=== PATIENT | female | born 1965 | race Caucasian/White ===

== ENCOUNTER 2021-11-22 10:46 | Emergency (ER) | payer OTHER, SELFPAY ==
--- NOTE | ~2021-11-22 | XR_ITS ---
XR chest 2V 11/22/2021 11:23 Indication: Productive cough Procedure: 2 view chest Comparison: No prior studies for comparison. Findings: There is left basilar infiltrate. Heart size normal. Right lung clear. No pleural effusion or pneumothorax. No edema. Impression: 1: Left basilar infiltrate which may represent atelectasis or less likely developing pneumonia. Recom mend follow-up x-ray to ensure resolution. Reviewed, dictated and finalized at location B. Impression: 1: Left basilar infiltrate which may represent atelectasis or less likely devel oping pneumonia. Recommend follow-up x-ray to ensure resolution.
[2021-11-22 11:13] VITALS: BP 122/71; PULSE 110; RESP 20; TEMP 36.4; O2SAT 98
--- NOTE | 2021-11-22 11:17 | ED.URI ---
HPI - URI/Sore Throat General Chief Complaint: Upper Respiratory Infection Stated Complaint: Cough,Chills Time Seen by Provider: 11/22/21 11:17 Source: patient Mode of arrival: ambulatory Limitations: no limitations History of Present Illness HPI Narrative: 56-year-old female presents with complaint of fever, chills, body aches, fatigue, headaches, cough, nausea for 2 days. Reports that she did have vomiting last night. Is taking Tylenol and Robitussin to treat her symptoms. Reports body aches are so intense that she cannot get comfortable. Is COVID vaccinated. No chest pain or shortness of breath but does have history of pneumonia. Denies diarrhea. All systems reviewed and negative except as noted above. Related Data Home Medications Medication Instructions Recorded Confirmed estradiol 1 mg tablet 1 mg PO DAILY 10/01/21 leflunomide 20 mg tablet 20 mg PO DAILY 10/01/21 10/01/21 medroxyprogesterone 2.5 mg tablet 2.5 mg PO DAILY 10/01/21 sulfasalazine 500 mg tablet 0.5 g PO DAILY 10/01/21 Allergies Allergy/AdvReac Type Severity Reaction Status Date / Time No Known Allergies Allergy Verified 10/01/21 14:22 Review of Systems Review of Systems: CONSTITUTIONAL: Reports fever, chills, or sweats. EYES: Denies visual changes, redness, or discharge. ENT: Denies rhinorrhea, congestion, sore throat, or otalgia. CARDIOVASCULAR: Denies chest pain, palpitations, or edema. RESPIRATORY: Reports cough. Denies dyspnea. GASTROINTESTINAL: Denies abdominal pain, nausea, vomiting, or diarrhea. GENITOURINARY: Denies dysuria or hematuria. SKIN: Denies rash or itching. MUSCULOSKELETAL: Denies back pain, joint pain. Reports myalgia. NEUROLOGIC: Reports headache. Denies numbness, or weakness. PSYCHIATRIC: Denies anxiety or depression. All other systems reviewed are negative, except as documented in HPI. [facility] Past Medical History Medical History Arthritis, rheumatoid Erosion of suburethral sling Surgical History Surgical History History of tonsillectomy History of tubal ligation Family History Family History (Updated 10/01/21 @ 14:27 by Sola Norwood MA) Grandparent Heart disease Social History Social History (Updated 10/01/21 @ 14:27 by Sola Norwood MA) Smoking status: Never smoker Second hand tobacco smoke exposure: No Alcohol intake: current Alcohol use details: Rarely Substance use: never Substance use type: does not use Gender identity (if verbalized by the patient): Female Sexual Orientation (if Verbalized by the Patient): Straight or Heterosexual Spiritual care concerns: No Agree to blood products: Yes Comments At time of signature, agree with nursing past medical, surgical, social and family history. There is no relevant family history pertinent to the presenting complaint. Exam Narrative: GENERAL: This is a well-nourished, well-developed patient. Patient is ill-appearing but in no distress. HEAD: normocephalic, atraumatic. EYES: PERRL. Sclera clear/white. Vision is grossly intact. EARS: External ears normal, auditory canals clear and without drainage, TMs normal without perforation. Hearing grossly intact. NOSE: External nose normal with no obvious nasal discharge, nares without redness, no rhinorrhea. THROAT: Mucous membranes moist, posterior pharynx clear. NECK: Neck supple, non-tender without lymphadenopathy, masses or thyromegaly. CARDIOVASCULAR: Regular rate and rhythm without murmurs, gallops, or rubs. RESPIRATORY: Decreased upper lobes but otherwise clear. Breath sounds equal bilaterally. No wheezes, rales, or rhonchi. GASTROINTESTINAL: Abdomen soft, non-tender, nondistended. Bowel sounds are active. No hepato-splenomegaly, or palpable masses. No guarding. SKIN: warm, Dry, intact with no suspicious lesions or rash, good texture and turgor. NEURO: awake, al
== END 2021-11-22 11:44 | disposition home or self-care (01) ==
PROVIDERS: Emergency Provider Nurse Practitioner Family; PCP Family Medicine Adolescent Medicine
DX: J10.1 Influenza due to other identified influenza virus with other respiratory manifestations (principal); J18.9 Pneumonia, unspecified organism; Z20.822 Contact with and (suspected) exposure to COVID-19; M06.9 Rheumatoid arthritis, unspecified
CPT/HCPCS: 71046; 87426; 87804; 99213; C9803; G0463

== ENCOUNTER → 2021-12-12 15:03 | Outpatient (CLI) | payer OTHER, SELFPAY ==
--- NOTE | ~2021-12-12 | XR_ITS ---
EXAMINATION: XR chest 2V 12/12/2021 15:24 INDICATION: Shortness of breath PROCEDURE: 2 view chest COMPARISON: 11/22/2021 FINDINGS: The lungs are clear. The cardiomediastinal silhouette is within normal limits. There are no pleural effusions. There is no pneumothorax suspected. IMPRESSION: 1: NO ACUTE CARDIOPULMONARY DISEASE. Reviewed, dictated and finalized at location B.
== END ==
PROVIDERS: PCP Family Medicine Adolescent Medicine; Visit Provider Physician Assistant
DX: R06.02 Shortness of breath (principal)
CPT/HCPCS: 71046

== ENCOUNTER 2022-06-14 18:39 | Observation (INO) | payer OTHER, SELFPAY ==
[2022-06-14] VITALS (10 sets, daily range): BP systolic 142–166; BP diastolic 58–82; PULSE 82–99; RESP 15–18; TEMP 36.6–36.9; O2SAT 97–100
--- NOTE | ~2022-06-14 | XR_ITS ---
EXAMINATION: XR abdomen/kub 1V DATE: 06/15/2022 01:26 INDICATION: Right ureteral stone. TECHNIQUE: A supine view of the abdomen on 2 radiographs was obtained. COMPARISON: CT abdomen and pelvis 06/14/2022 FINDINGS: There are no dilated loops of bowel. There is contrast in the renal collecting system. Ther e is mild right hydronephrosis. IMPRESSION: 1. Mild right hydronephrosis. Reviewed, dictated and finalized at location A. K MIXER
--- NOTE | ~2022-06-14 | XR_ITS ---
EXAMINATION: XR retrograde pyelo w/stent RT DATE: 06/15/2022 9:15 RUBBER STAMP MAKER INDICATION: STONE . TECHNIQUE: 6 fluoroscopic images of the right abdomen and pelvis were obtained during right retrograd e pyelography with stent placement performed by the surgeon. I was not present in the operating room. Fluoroscopy exposure time was 29.5 seconds. DAP [id number] mGym2. COMPARISON: None FINDINGS: Wire and catheter access into the right collecting system followed by stent placement, proximal coil over the renal pelvis, distal coil over the bladder. IMPRESSION: Fluoroscopic documentation of right retrograde pyelography with stent placement. Please refer to the operative note for complete procedural details . Reviewed, dictated and finalized at location K. ER STAMP MAKER IMPRESSION: Fluoroscopic documentation of right retrograde pyelography with stent placement . Please refer to the operative note for complete procedural details .
--- NOTE | ~2022-06-14 | CT_ITS ---
EXAMINATION: CT abdomen pelvis w con DATE: 06/14/2022 21:48 INDICATION: Right upper quadrant abdominal pain. Right flank pain. Nausea and vomiting. TECHNIQUE: Computed tomography (CT) of the abdomen and pelvis was performed with 100 mL Omnipaque 350 intravenous contrast. Automated exposure control and iterative reconstruction technique were employe d. The dose-length product was 1152.65 mGy-cm. COMPARISON: None. FINDINGS: The visualized portions of the lung bases demonstrate mild atelectasis. A calcified right l sandor nodule and calcified right hilar lymph nodes are consistent with old granulomatous disease. No pl eural effusion. The heart size is normal. No pericardial effusion. There is diffuse hepatic steatosis . There is a 15 mm mass in left hepatic lobe. There is a small sliding hiatal hernia. The gallbladder , spleen, pancreas, adrenal glands are normal. There is a delayed right-sided contrast nephrogram. Th ere is asymmetric edema around right kidney. There is mild right hydronephrosis. There is a 4 mm ston e in proximal right ureter. There is a 13 mm cyst in left kidney. There are no dilated loops of bowel . The appendix is not visualized. There are no pathologically enlarged lymph nodes. There is no free intraperitoneal fluid. There are chronic bilateral L5 pars defects. There is 5 mm anterolisthesis of L5 on S1. IMPRESSION: 1. 4 mm stone in proximal right ureter with mild right hydronephrosis. 2. 15 mm liver mass, which may be benign or malignant. Abdomen MRI without and with contrast is recom mended. Reviewed, dictated and finalized at location A. ATION MANAGER IMPRESSION: 1. 4 mm stone in proximal right ureter with mild right hydronephrosis. 2. 15 mm liver mass, which may be benign or malignant. Abdomen MRI without and with contrast is recommended.
[2022-06-14 20:33] LABS: Basophils Absolute Auto 0.1 K/mm3 (0.0-0.1); Basophils Percent Auto 0.7 % (0.2-1.2); Eosinophils Absolute Auto 0.2 K/mm3 (0-0.3); Eosinophils Percent Auto 1.4 % (0-4.4); Hematocrit 41.5 % (37.0-47.0); Hemoglobin 13.6 g/dL (12.0-15.0); Immature Granulocyte Absolute 0.07 K/mm3 (0.00-0.031); Immature Granulocyte Percent A 0.6 % (0-0.5); Lymphocytes Absolute Auto 0.89 K/mm3 (0.9-3.2); Lymphocytes Percent Auto 8.1 % (18.3-44.2); Mean Corpuscular HGB Conc 32.8 g/dl (32-36); Mean Corpuscular Hemoglobin 28.5 pg (26-34); Mean Corpuscular Volume 86.8 fl (80-100); Mean Platelet Volume 11.9 fl (7.4-10.4); Monocytes Absolute Auto 0.9 K/mm3 (0.1-0.6); Monocytes Percent Auto 7.8 % (2.6-8.5); Neutrophils Absolute Auto 8.9 K/mm3 (1.3-6.7); Neutrophils Percent Auto 81.4 % (45.5-73.1); Platelet Count Result 243 k/mm3 (150-375); Red Blood Count 4.78 M/mm3 (4.2-5.4); Red Cell Distribution Width 13.5 % (11.5-14.5)
[2022-06-14 20:44] LABS: Alanine Aminotransferase 34 U/L (6-35); Albumin Level 4.6 g/dL (3.5-5.1); Alkaline Phosphatase 123 U/L (38-126); Anion Gap 8 mmol/L (8-16); Aspartate Amino Transferase 28 U/L (14-36); Bilirubin,Total 0.9 mg/dL (0.2-1.3); Blood Urea Nitrogen 12 mg/dL (7-17); Calcium 8.7 mg/dL (8.4-10.2); Carbon Dioxide 25 mmol/L (22-30); Chloride 106 mmol/L (98-107); Estimated CRCL calculation 90 ml/min; Estimated Glomerular Filt Rate > 60; Glucose 132 mg/dL (65-110); Lipase 34 U/L (23-300); Potassium 4.1 mmol/L (3.4-5.0); Sodium 139 mmol/L (137-145)
[2022-06-14 20:53] LABS: Appearance Urine Clear (Clear); Bilirubin Urine 1+ (Negative); Blood Urine 3+ (Negative); Color Urine Yellow (Yellow); Glucose Urine UA Negative (Negative); Ketones Urine 1+ mg/dL (Negative); Leukocyte Esterase Ur Negative LEU/UL (Negative); Nitrate Urine Negative (Negative); Protein Urine 1+ mg/dL (Negative); Specific Grav Ur >= 1.030 (1.001-1.035); Urobilinogen Urine 0.2 mg/dL (<2.0); pH Urine 5.5 (5.0-9.0)
[2022-06-14] MEDS: MORPHINE SULFATE (*CRX) 4 MG/ML INJ IV PUSH ×2 (20:55→22:20)
[2022-06-14] MEDS: ONDANSETRON INJ 4 MG/2 ML VIAL IV PUSH ×2 (20:55→22:20)
[2022-06-14] MEDS: LACTATED RINGERS 1,000 ML 999 ML IV CONT (20:55)
[2022-06-14 20:59] LABS: Amorphous Sediment Urine Few; Mucus Urine Rare /lpf; RBC Urine >75 /hpf (0-2); Squamous Epithelial Cell Urine Few /hpf (Few)
[2022-06-14 21:01] LABS: Add Urine Microscopic? YES
--- NOTE | 2022-06-14 22:40 | ED.ABDPAIN ---
HPI - Abdominal Pain General Chief Complaint: Abdominal Pain Stated Complaint: abd pain Time Seen by Provider: 06/14/22 20:01 History of Present Illness HPI narrative: Patient is a 57-year-old female who presents ER with right side abdominal pain. Sudden onset today. Radiates in the back and to the lower abdomen. Associated with waves of nausea. No fevers or chills or sweats. No association with eating or drinking. Has found no alleviating factors. No urinary frequency urgency or dysuria. Related Data Home Medications Medication Instructions Recorded Confirmed estradiol 1 mg tablet 1 mg PO DAILY 06/15/22 06/15/22 medroxyprogesterone 2.5 mg tablet 2.5 mg PO DAILY 06/15/22 06/15/22 Allergies Allergy/AdvReac Type Severity Reaction Status Date / Time No Known Allergies Allergy Verified 06/14/22 20:05 Review of Systems Review of Systems: All systems reviewed & are unremarkable except as noted in HPI and below Constitutional: Constitutional: Denies chills, Denies fatigue and Denies fever(s) ENT: Denies nasal congestion and Denies sore throat Cardiovascular: Cardiovascular: Denies chest pain, Denies rapid heart rate and Denies radiating jaw, neck or arm pain Respiratory: Respiratory: Denies cough, Denies dyspnea and Denies wheezing Gastrointestinal: Gastrointestinal: Reports abdominal pain, Denies diarrhea, Reports nausea and Reports vomiting Genitourinary: Genitourinary: Denies hematuria, Denies nocturia, Denies dysuria and Reports flank pain PMFSH Past Medical History Medical History Arthritis, rheumatoid Erosion of suburethral sling Surgical History Surgical History History of tonsillectomy History of tubal ligation Family History Family History (Updated 06/15/22 @ 04:03 by Griselda Bird RN) Grandparent Heart disease Social History Social History Smoking status: Never smoker Second hand tobacco smoke exposure: No Alcohol intake: current Alcohol use details: Rarely Substance use: never Substance use type: does not use Lack of Transportation: No Lack of Food: Never True Current Housing: I Have Housing Concerned About Future Housing: No Difficulty Paying Gas/Electric Bills: No Difficulty Paying for Meds: No Currently Unemployed: No Education: Master's Degree or Higher Difficulty w/ Childcare or Family Care: No Gender identity (if verbalized by the patient): Female Sexual Orientation (if Verbalized by the Patient): Straight or Heterosexual Spiritual care concerns: No Agree to blood products: Yes Exam Narrative: GENERAL: Well-appearing, well-nourished, and in mild distress. HEAD: Normocephalic, atraumatic. EYES: PERRL and EOMI. ENT: Mucous membranes moist. CHEST: Clear to auscultation. No respiratory distress. HEART: Regular rate and rhythm. Normal peripheral pulses. ABDOMEN: Soft, TTP to the RUQ with guarding, nondistended. EXTREMITIES: Normal range of motion. No edema. SKIN: Warm, dry, no rash. NEURO: Alert and oriented x3. PSYCH: Normal mood and affect. Course Course Emergency Course: Patient with very poor pain control after morphine x2 and Dilaudid. Patient will be admitted for observation to the urology service. Will likely require stenting. Vital Signs Vital signs: Vital Signs Temperature 97.8 F 06/14/22 18:54 Pulse Rate 84 06/14/22 18:54 Respiratory Rate 16 06/14/22 18:54 Blood Pressure 149/73 H 06/14/22 18:54 Pulse Oximetry 98 06/14/22 18:54 Oxygen Delivery Room Air 06/14/22 18:54 Temperature 98.2 F 06/15/22 03:40 Pulse Rate 86 06/15/22 03:40 Respiratory Rate 18 06/15/22 03:40 Blood Pressure 148/80 H 06/15/22 03:40 Pulse Oximetry 96 06/15/22 03:40 Oxygen Delivery Room Air 06/15/22 04:20 MDM - Abdominal Pain La
[2022-06-14] MEDS: HYDROmorphone HCL INJ (*CRX) 1 MG/ML SYR IV PUSH (23:42)
[2022-06-15] VITALS (16 sets, daily range): BP systolic 121–153; BP diastolic 69–80; PULSE 72–94; RESP 12–20; TEMP 35.4–36.8; O2SAT 93–100; BMI 33.3
[2022-06-15] MEDS: HYDROmorphone HCL INJ (*CRX) 1 MG/ML SYR IV PUSH ×2 (02:27→05:55)
[2022-06-15] MEDS: SODIUM CHLORIDE 0.9% IV 1,000 ML 125 ML IV CONT (02:27)
[2022-06-15 03:09] LABS: Influenza A QL RT-PCR Negative (Negative); Influenza B QL RT-PCR Negative (Negative); SARS-CoV-2 RNA PCR Negative
--- NOTE | 2022-06-15 04:02 | ADMGEN ---
This patient, Mimi Hood, was admitted to 3 [facility] Surg Room 327-01. Patient/family oriented to hospital policies and general routines including ID bracelet, bed and alarms, visiting hours, pain management, procedures, bathroom and other care routines, personal items, smoking policy, room service/diet, and visiting hours. Information on how to activate the Rapid Response Team has been discussed. Patient/Family are encouraged to report perceived risks to care and to ask questions if they do not understand what they are told or what they should do.
[2022-06-15] MEDS: ONDANSETRON INJ 4 MG/2 ML VIAL IV PUSH (04:12)
--- NOTE | 2022-06-15 08:27 | WPDANESEPPF ---
Anes - Initial Pre Proc Eval Procedure: Operation Date: 06/15/22 08:00 Proposed Procedures p Cysto, RPG, Stone Ext, Stent Placement - Beto Burch MD Date/Time: 06/15/22 08:27 Surgeon: Beto Burch MD Pre Op Diagnosis: Ureterolithiasis Patient Data Age: 57 Gender: F Height: 1.7 m Weight: 96.4 kg Last Vital Signs Temp 35.4 C L 06/15/22 06:00 Pulse 83 06/15/22 06:00 Resp 16 06/15/22 06:00 BP 153/77 H 06/15/22 06:00 Pulse Ox 96 06/15/22 06:00 O2 Del Method Room Air 06/15/22 04:20 Allergies Allergy/AdvReac Type Severity Reaction Status Date / Time No Known Allergies Allergy Verified 06/14/22 20:05 Home Medications Medication Instructions Recorded Confirmed Type estradiol 1 mg tablet 1 mg PO DAILY 06/15/22 06/15/22 History medroxyprogesterone 2.5 mg tablet 2.5 mg PO DAILY 06/15/22 06/15/22 History Laboratory Tests 06/14/22 06/14/22 06/14/22 20:25 20:25 20:43 WBC 11.0 K/mm3 H K/mm3 (4.5-10.0) RBC 4.78 M/mm3 M/mm3 (4.2-5.4) Hgb 13.6 g/dL g/dL (12.0-15.0) Hct 41.5 % % (37.0-47.0) MCV 86.8 fl fl (80-100) MCH 28.5 pg pg (26-34) MCHC 32.8 g/dl g/dl (32-36) RDW 13.5 % % (11.5-14.5) Plt Count 243 k/mm3 k/mm3 (150-375) MPV 11.9 fl H fl (7.4-10.4) Immature Gran % (Auto) 0.6 % H % (0-0.5) Neut % (Auto) 81.4 % H % (45.5-73.1) Lymph % (Auto) 8.1 % L % (18.3-44.2) [place] % (Auto) 7.8 % % (2.6-8.5) Eos % (Auto) 1.4 % % (0-4.4) Baso % (Auto) 0.7 % % (0.2-1.2) Lymph # (Auto) 0.89 K/mm3 L K/mm3 (0.9-3.2) [place] # (Auto) 0.9 K/mm3 H K/mm3 (0.1-0.6) Eos # (Auto) 0.2 K/mm3 K/mm3 (0-0.3) Baso # (Auto) 0.1 K/mm3 K/mm3 (0.0-0.1) Abs Immat Gran (auto) 0.07 K/mm3 H K/mm3 (0.00-0.031) Absolute Neuts (auto) 8.9 K/mm3 H K/mm3 (1.3-6.7) Absolute Nucleated RBC 0.0 K/mm3 K/mm3 (0.0-0.012) Nucleated RBC % 0.0 % % (0.0-0.2) Sodium 139 mmol/L mmol/L (137-145) Potassium 4.1 mmol/L mmol/L (3.4-5.0) Chloride 106 mmol/L mmol/L (98-107) Carbon Dioxide 25 mmol/L mmol/L (22-30) Anion Gap 8 mmol/L mmol/L (8-16) BUN 12 mg/dL mg/dL (7-17) Creatinine 0.70 mg/dL mg/dL (0.7-1.0) Estim Creat Clear Calc 90 ml/min ml/min Estimated GFR > 60 (59 - ) Glucose 132 mg/dL H mg/dL (65-110) Calcium 8.7 mg/dL mg/dL (8.4-10.2) Total Bilirubin 0.9 mg/dL mg/dL (0.2-1.3) AST 28 U/L U/L (14-36) ALT 34 U/L U/L (6-35) Alkaline Phosphatase 123 U/L U/L (38-126) Total Protein 8.0 g/dL g/dL (6.3-8.2) Albumin 4.6 g/dL g/dL (3.5-5.1) Lipase 34 U/L U/L (23-300) Urine Color Yellow (Yellow) Urine Appearance Clear (Clear) Urine pH 5.5 (5.0-9.0) Ur Specific [place] >= 1.030 (1.001-1.035) Urine Protein 1+ mg/dL H mg/dL (Negative) Urine Glucose (UA) Negative mg/dL mg/dL (Negative) Urine Ketones 1+ mg/dL H mg/dL (Negative) Ur Blood (Man) 3+ H (Negative) Urine Nitrate Negative (Negative) Urine Bilirubin 1+ H (Negative) Urine Urobilinogen 0.2 mg/dL mg/dL (<2.0) Leukocyte Esterase Rfl Negative ALTON/UL ALTON/UL (Negative) Urine RBC >75 /hpf H /hpf (0-2) Urine WBC 4-6 /hpf H /hpf Ur Squamous Epith Cells Few /hpf /hpf (Few) Amorphous Sediment Few H (None) Urine Mucus Rare /lpf /lpf Influenza A (RT-PCR) Influenza B (RT-PCR) SARS-CoV-2 RNA (RT-PCR) 06/15/22 02:26 WBC RBC Hgb Hct
[2022-06-15] MEDS: ceFAZolin 2 GM/D5W 50 ML 2 GM/50 ML BAG IVPB (09:08)
[2022-06-15] MEDS: LIDOCAINE HCL 2% GEL UROJET 10 ML PKG MUCOUS MEM (09:10)
--- NOTE | 2022-06-15 09:43 | PM.IMHP ---
H&P: HPI History of Present Illness Date/Time: 06/15/22 09:43 Chief Complaint: Obstructing right ureteral calculus with hydronephrosis and intractable pain Narrative: Pleasant 57-year-old female who presented to the emergency room with severe right flank pain radiating to right lower quadrant. She also had nausea with emesis. Denies any fever. Evaluation emergency room revealed a 6 mm obstructing right proximal ureteral stone with hydronephrosis. Given her pain she was admitted for pain control for further management. She denies any prior history of stones. Review of Systems Review of Systems: All systems reviewed & are unremarkable except as noted in HPI and below PMFSH Past Medical History Medical History Arthritis, rheumatoid Erosion of suburethral sling Surgical History Surgical History History of tonsillectomy History of tubal ligation Family History Family History Grandparent Heart disease Social History Social History Smoking status: Never smoker Second hand tobacco smoke exposure: No Alcohol intake: current Alcohol use details: Rarely Substance use: never Substance use type: does not use Lack of Transportation: No Lack of Food: Never True Current Housing: I Have Housing Concerned About Future Housing: No Difficulty Paying Gas/Electric Bills: No Difficulty Paying for Meds: No Currently Unemployed: No Education: Master's Degree or Higher Difficulty w/ Childcare or Family Care: No Gender identity (if verbalized by the patient): Female Sexual Orientation (if Verbalized by the Patient): Straight or Heterosexual Spiritual care concerns: No Agree to blood products: Yes Meds Home Medications and Allergies Home Medications Medication Instructions Recorded Confirmed Type estradiol 1 mg tablet 1 mg PO DAILY 06/15/22 06/15/22 History medroxyprogesterone 2.5 mg tablet 2.5 mg PO DAILY 06/15/22 06/15/22 History Allergies Allergy/AdvReac Type Severity Reaction Status Date / Time No Known Allergies Allergy Verified 06/14/22 20:05 Vital Signs Vital Signs - 24 hr 06/14/22 18:54 06/14/22 20:01 06/14/22 20:17 Temperature 36.6 C Pulse Rate 84 85 82 Respiratory Rate 16 16 17 Blood Pressure 149/73 H Pulse Oximetry 98 100 99 Oxygen Delivery Room Air 06/14/22 20:30 06/14/22 20:31 06/14/22 21:00 Temperature Pulse Rate 86 85 Respiratory Rate 17 16 Blood Pressure 154/58 H Pulse Oximetry 98 98 Oxygen Delivery 06/14/22 21:15 06/14/22 21:44 06/14/22 21:45 Temperature 36.7 C Pulse Rate 92 99 97 Respiratory Rate 18 15 15 Blood Pressure 166/82 H Pulse Oximetry 98 98 99 Oxygen Delivery 06/14/22 22:00 06/15/22 00:59 06/15/22 01:00 Temperature 36.9 C Pulse Rate 92 90 89 Respiratory Rate 16 16 20 Blood Pressure 142/80 H Pulse Oximetry 97 95 93 Oxygen Delivery 06/15/22 01:15 06/15/22 01:30 06/15/22 01:57 Temperature Pulse Rate 84 92 94 Respiratory Rate 19 18 19 Blood Pressure Pulse Oximetry 94 93 94 Oxygen Delivery 06/15/22 02:00 06/15/22 03:40 06/15/22 04:20 Temperature 36.8 C Pulse Rate 94 86 Respiratory Rate 19 18 Blood Pressure 148/80 H Pulse Oximetry 94 96 Oxygen Delivery Room Air 06/15/22 06:00 Temperature 35.4 C L Pulse Rate 83 Respiratory Rate 16 Blood Pressure 153/77 H Pulse Oximetry 96 Oxygen Delivery Exam Const: General: cooperative; No comfortable HENMT: Head: normal to inspection Eyes: General: appearance normal, both eyes and all related structures Neck: Neck: normal visual inspection Resp: Effort & Inspection: normal respiratory effort Cardio: Rate: regular rate Rhythm: regular rhythm GI: Inspection: nor
--- NOTE | 2022-06-15 09:46 | WPDHPUPDATE1 ---
History and Physical Update Update Date/Time: 06/15/22 09:46 History and Physical has been reviewed, including an updated exam of the patient. There are NO changes in the patient's condition. Risks, benefits, and alternatives have been discussed and questions answered. Patient agrees to proceed with procedure. Proceed with cysto, right retrograde pyelogram, right ureteroscopy with holmium laser stent placement
[2022-06-15] MEDS: LACTATED RINGERS 1,000 ML 30 ML IV CONT (09:48)
--- NOTE | 2022-06-15 09:48 | SUR.PHASEI ---
Scopolamine patch placed behind right ear by anesthesia.
[2022-06-15] MEDS: fentaNYL CITRATE INJ (*CRX) 100 MCG/2 ML VIAL 25 MCG IV PUSH ×2 (10:01→10:17)
--- NOTE | 2022-07-11 07:40 | P.OP_ITS ---
Procedure Note - Detailed Date of Procedure 07/11/22 Pre-op Diagnosis Ureterolithiasis Post-op Diagnosis Same Procedure Performed Cystoscopy, right retrograde pyelogram, right ureteroscopy with holmium laser, stent placement Surgeon Beto Burch MD Anesthesia General Description of Procedure patient is taken to the operative suite correctly identified. Once anesthesia was obtained she was placed in dorsal lithotomy position and prepped and draped usual sterile fashion. Twenty-two Mal[place] scope was inserted the bladder. No tumors noted. Right ureteral orifice was cannulated with a guidewire. Flexible ureteral scope was inserted into the ureter. The stone was visualized. Using holmium laser fiber to fragment the stone. 4.8 [place] contour stent was then placed after a pyelogram was performed from placement in the kidney. Patient was taken recovery stable condition. She will follow up in a week's time for stent removal. Estimated Blood Loss 0 Urine Output 300 Drains Yes Packing No Pathology Yes Complications No immediate complications Condition Stable Disposition PACU
--- NOTE | 2022-08-05 15:29 | PM.DS ---
DS: Admitting Diagnosis Discharge Date 06/15/22 Admitting Diagnosis right ureteral stone with pain DS: Discharge Diagnosis Discharge Diagnosis Plan follow up in 1 week for stent removal DS: Summary Hospital Course Hospital Course: Patient was admitted and underwent a cysto right retrograde right ureteroscopy holmium laser stent placement. Postoperatively she has done. Patient will be discharged home with follow-up in a week's time for stent. Time Spent with Patient Time attestation: Total time spent providing and/or coordinating discharge services: Discharge Plan Discharge Attending physician on discharge: Beto Burch Consulting providers: Paulo Garrido ; Dudley Kendall V. ; Joselito Maldonado Discharging Clinician: Beto Burch Patient Disposition: Home, Self-Care Activity: may shower Diet: as tolerated Patient Instructions: Antibiotic Form Stand Alone Forms: General Discharge Information Follow-up/Referrals: Beto Burch MD [Physician] - (Follow-up 1 week for cysto with stent removal. Call for appointment) Discharge Medications: Continued medroxyprogesterone 2.5 mg tablet 2.5 mg PO DAILY estradiol 1 mg tablet 1 mg PO DAILY Date of admission: 06/15/22 00:14 Primary Care Provider: David Banda Admitting Provider: Beto Burch Attending physician on admission: Beto Burch Condition: Stable
== END 2022-06-15 14:45 | disposition home or self-care (01) ==
LOC: ANHED 06-15 00:46 → ANH3MEDSUR 06-15 03:15
PROVIDERS: Admitting Provider Urology; Emergency Provider Emergency Medicine; PCP Family Medicine Adolescent Medicine; Visit Provider Urology
PROC: (CPT 52352; principal; 2022-06-15 08:00)
DX: N13.2 Hydronephrosis with renal and ureteral calculous obstruction (principal); R16.0 Hepatomegaly, not elsewhere classified; M54.9 Dorsalgia, unspecified; R11.0 Nausea; M06.9 Rheumatoid arthritis, unspecified; E66.9 Obesity, unspecified; Z68.33 Body mass index [BMI] 33.0-33.9, adult; F10.90 Alcohol use, unspecified, uncomplicated; Z20.822 Contact with and (suspected) exposure to COVID-19; Z79.899 Other long term (current) drug therapy
CPT/HCPCS: 52325; 52332; 36415; 74018; 74177; 74420; 80053; 81001; 83690; 85025; 87636; 96361; 96365; 96374; 96375; 96376; 99285; A9270; C1758; C1769; C1894; C2617; G0378; J0131; J0330; J0690; J1100; J1170; J2250; J2270; J2405; J2704; J3010; J7030; J7120; Q9967

== ENCOUNTER → 2022-06-24 10:33 | Outpatient (CLI) | payer OTHER, SELFPAY ==
--- NOTE | ~2022-06-24 | MR_ITS ---
EXAMINATION: MR abdomen wo/w con DATE: 06/24/2022 11:51 INDICATION: Incidental left hepatic lobe mass identified on prior CT TECHNIQUE: Magnetic resonance imaging (MRI) of the abdomen was performed without and with 18 mL Multi neeta intravenous contrast. Sequences included coronal T2-weighted SS-FSE, coronal and axial FS 2D-F IESTA, axial STIR FSE, axial T2-weighted SS-FSE, axial T2-weighted FS SS-FSE, axial diffusion-weighte d SE, axial dual-echo T1-weighted FSPGR, and axial and coronal T1-weighted LAVA. Postcontrast axial T 1-weighted LAVA images were obtained in a time course. Postcontrast coronal T1-weighted LAVA images w ere obtained. COMPARISON: CT dated 06/14/2022 FINDINGS: Heart size is normal. Subtle nodule at the posterior sulcus of the right lower lobe corresponding to a centrally calcified granuloma on prior CT. No pericardial or pleural effusion. Diffuse hepatic stea tosis with signal loss on opposed phase imaging. 1.5 cm T2 hyperintense lesion of less than simple in tensity in the lateral segment of the left hepatic lobe with lobular margins and with peripheral pudd ling of contrast which gradually fills in on the 5 and 10 minute delayed imaging consistent with a he mangioma. No other hepatic lesions identified. Gallbladder, spleen, pancreas, right kidney and bilate ral adrenal glands are normal. 11 mm nonenhancing T2 hyperintense cyst at the upper pole of the left kidney. Visualized portions of the bowels are normal with no obstruction. No pathologically enlarged abdominal lymphadenopathy. Mild lumbar levocurvature with mild to moderate lower lumbar spondylosis. Normal marrow signal throughout. IMPRESSION: 1. 1.5 cm hemangioma in the left hepatic lobe corresponding to region of concern on prior CT Reviewed, dictated and finalized at location L. ENGINEER IMPRESSION: 1. 1.5 cm hemangioma in the left hepatic lobe corresponding to region of concer n on prior CT
== END ==
PROVIDERS: PCP Family Medicine Adolescent Medicine; Visit Provider Physician Assistant
DX: K76.89 Other specified diseases of liver (principal)
CPT/HCPCS: 74183; A9577

== ENCOUNTER 2023-10-06 11:00 | Emergency (ER) | payer OTHER, SELFPAY ==
[2023-10-06 11:14] VITALS: BP 149/87; PULSE 92; RESP 16; TEMP 37; O2SAT 98
--- NOTE | 2023-10-06 11:41 | ED.GENADULT ---
HPI - General Adult General Chief complaint: Upper Respiratory Infection Stated complaint: tightness in chest/throat,ear pain, head pain Time Seen by Provider: 10/06/23 11:41 Source: patient, RN notes reviewed and old records reviewed Mode of arrival: ambulatory Limitations: no limitations History of Present Illness HPI narrative: 58-year-old female presents to the [facility] with sore throat, ear pain, head pain that started either Thursday or Thursday 2-3 days. Has taken Tylenol and Motrin. Reports taking Claritin and Flonase Onset (ago): day(s) (2-3) Related Data Home Medications Medication Instructions Recorded Confirmed sulfasalazine 500 mg tablet 0.5 g PO .COMPLEX 10/27/22 10/06/23 Allergies Allergy/AdvReac Type Severity Reaction Status Date / Time No Known Allergies Allergy Verified 10/06/23 11:14 Review of Systems Review of Systems: All systems reviewed & are unremarkable except as noted in HPI and below Constitutional: Constitutional: Reports no additional constitutional complaints Eyes: Eyes: Reports no additional eye complaints ENT: Reports as per HPI Cardiovascular: Cardiovascular: Reports no additional cardiovascular complaints, Denies chest pain and Denies dyspnea Respiratory: Respiratory: Reports as per HPI, Denies chest congestion, Reports cough and Denies dyspnea Gastrointestinal: Gastrointestinal: Reports no additional gastrointestinal complaints, Denies abdominal pain, Denies nausea and Denies vomiting Musculoskeletal: Musculoskeletal: Reports no additional musculoskeletal complaints Integumentary/Breasts: Skin/Breast: Reports system reviewed and no additional complaints, except as docu Neurologic: Reports system reviewed and no additional complaints, except as documented Psychiatric: Psychiatric: Reports no additional psychiatric complaints Allergic/Immunologic: Allergic/Immunologic: Reports no additional allergic/immunologic complaints [facility] Past Medical History Medical History Arthritis, rheumatoid Erosion of suburethral sling Surgical History Surgical History History of tonsillectomy History of tubal ligation Family History Family History Grandparent Heart disease Social History Social History Smoking status: Never smoker Second hand tobacco smoke exposure: No Alcohol intake: current Alcohol use details: Rarely Substance use: never Substance use type: does not use Lack of Transportation: No Lack of Food: Never True Current Housing: I Have Housing Concerned About Future Housing: No Difficulty Paying Gas/Electric Bills: No Difficulty Paying for Meds: No Currently Unemployed: No Education: Master's Degree or Higher Difficulty w/ Childcare or Family Care: No Living arrangements: with family Occupation/Education: occupation Gender identity (if verbalized by the patient): Female Sexual Orientation (if Verbalized by the Patient): Straight or Heterosexual Spiritual care concerns: No Agree to blood products: Yes Comments At the time of my signature, I reviewed and agree with the nursing past medical, surgical, social, and family history. There is no relevant family history pertinent to the patient complaint. Exam Const: General: cooperative, no acute distress, well developed, alert, uncomfortable and well nourished Nutritional Appearance: well nourished Orientation/consciousness: patient oriented x3 Limitations: no limitations HENMT: Head: normal to inspection Ears: hearing grossly normal bilaterally, external ears normal, TM's normal bilaterally, EAC's normal, mastoids normal and no periauricular adenopathy Face/Nose/Sinus: Normal external nose present, Normal nares present, Normal nasal mucous membranes and turbi
== END 2023-10-06 12:21 | disposition home or self-care (01) ==
PROVIDERS: Emergency Provider Nurse Practitioner; PCP Family Medicine Adolescent Medicine
DX: J11.1 Influenza due to unidentified influenza virus with other respiratory manifestations (principal); Z20.822 Contact with and (suspected) exposure to COVID-19; M06.9 Rheumatoid arthritis, unspecified
CPT/HCPCS: 87081; 87426; 87804; 87880; 99213; G0463

== ENCOUNTER 2023-11-27 08:40 | Emergency (ER) | payer OTHER, SELFPAY ==
--- NOTE | ~2023-11-27 | XR_ITS ---
Clinical Indication: Cough PA and lateral views of the chest: Comparison: 12/12/2021 Findings: The lungs are clear, without evidence of focal consolidation or pleural effusion. Cardiome diastinal silhouette is within normal limits. Bones and soft tissues are unremarkable. Impression: Normal chest. Reviewed, dictated and finalized at location . Impression: Normal chest.
--- NOTE | 2023-11-27 08:52 | ED.URI ---
HPI - URI/Sore Throat General Chief Complaint: Upper Respiratory Infection Stated Complaint: Fever/Sinus/Cough Time Seen by Provider: 11/27/23 08:52 Source: patient Mode of arrival: ambulatory Limitations: no limitations History of Present Illness HPI Narrative: Mimi is a 58-year-old female patient presenting to the clinic today with complaints of fever, sinus congestion, shortness of breath, and cough x3 days. She reports she is bringing up some brown phlegm when coughing. Does have a 38.1? C temp in the clinic with the elevated heart rate at 120. SpO2 sat 97%. MD elicited complaint: fever, cough, nasal congestion, sinus pain and other (Shortness of breath) Related Data Home Medications Medication Instructions Recorded Confirmed sulfasalazine 500 mg tablet 0.5 g PO .COMPLEX 10/27/22 11/27/23 Allergies Allergy/AdvReac Type Severity Reaction Status Date / Time No Known Allergies Allergy Verified 11/27/23 08:45 Review of Systems Review of Systems: Pertinent positives per HPI. Patient denies any rash, visual changes, dizziness, chest pain, palpitations, nausea, vomiting, diarrhea, constipation, abdominal pain, or any urinary issues. [facility] Past Medical History Medical History Arthritis, rheumatoid Erosion of suburethral sling History of renal calculi Ureterolithiasis Surgical History Surgical History History of bladder surgery (2018) History of endometrial ablation History of tonsillectomy History of tubal ligation Urethral sling Family History Family History Grandparent Heart disease Social History Social History Smoking status: Never smoker Second hand tobacco smoke exposure: No Alcohol intake: current Alcohol use details: Rarely Substance use: never Substance use type: does not use Lack of Transportation: No Lack of Food: Never True Current Housing: I Have Housing Concerned About Future Housing: No Difficulty Paying Gas/Electric Bills: No Difficulty Paying for Meds: No Currently Unemployed: No Education: Master's Degree or Higher Difficulty w/ Childcare or Family Care: No Living arrangements: with family Occupation/Education: occupation Gender identity (if verbalized by the patient): Female Sexual Orientation (if Verbalized by the Patient): Straight or Heterosexual Spiritual care concerns: No Agree to blood products: Yes Comments At the time of my signature, I reviewed and agree with the nursing past medical, surgical, social, and family history. There is no relevant family history pertinent to the patient complaint. Exam Narrative: General: Well-developed, well nourished, in no apparent distress Head: Normocephalic, atraumatic Eyes: Pupils equally round and reactive to light bilaterally, EOM intact, sclera and conjunctive clear, no discharge, lids normal Ears: TMs intact and congested, ear canals clear, no drainage, grossly hearing normal. Nose: Nares patent, clear nasal discharge, moderate inflammation, no sinus tenderness. Mouth: Oral pharynx without lesions or masses, good dentition, MMM. Neck: Supple, trachea midline, no enlargement of anterior or posterior cervical nodes, no thyroid masses or goiter palpable. Cardio: Regular rate and rhythm, s1 and s2 normal, no murmur appreciated. Resp: Lung sounds tight/diminished, no rhonchi, rales, wheezing or rubs Course Course Emergency Course: Portions of this record may have been created with voice recognition software. Level of Care: Express Care Visit Vital Signs Vital signs: Vital signs reviewed MDM - URI/Sore Throat MDM Narrative Medical decision making narrative: At the time of visit patient is resting comfortably on the exam table. Pat
[2023-11-27 08:58] VITALS: BP 127/71; PULSE 120; RESP 20; TEMP 38.1; O2SAT 97
[2023-11-27] MEDS: IPRATROPIUM BR 0.02% INH SOLN 0.5 MG/2.5 ML VIAL INHALATION (10:03)
[2023-11-27] MEDS: ALBUTEROL SULFATE NEB 2.5 MG/3 ML INH INHALATION (10:04)
== END 2023-11-27 11:35 | disposition home or self-care (01) ==
PROVIDERS: Emergency Provider Nurse Practitioner Family; PCP Family Medicine Adolescent Medicine
DX: J22 Unspecified acute lower respiratory infection (principal); Z20.822 Contact with and (suspected) exposure to COVID-19; M06.9 Rheumatoid arthritis, unspecified
CPT/HCPCS: 71046; 87426; 87804; 94640; 99213; G0463